=== PATIENT | female | born 1935 | race Caucasian/White ===

== ENCOUNTER 2016-05-30 00:57 | Emergency (ER) | payer MEDICARE, OTHER | END 2016-05-30 02:35 | disposition home or self-care (01) | LOC: ER 00:57 | DX: I10 Essential (primary) hypertension (principal); R04.0 Epistaxis; J44.9 Chronic obstructive pulmonary disease, unspecified; Z90.49 Acquired absence of other specified parts of digestive tract; Z90.710 Acquired absence of both cervix and uterus; Z79.899 Other long term (current) drug therapy; Z88.0 Allergy status to penicillin; Z88.5 Allergy status to narcotic agent | CPT/HCPCS: 36415 ==